=== PATIENT | male | born 1990 | race Caucasian/White ===

== ENCOUNTER 2017-07-16 11:23 | Emergency (ER) | payer SELFPAY ==
[2017-07-16 11:24] VITALS: BP 138/77; PULSE 87; RESP 18; TEMP 36; O2SAT 98; BMI 30.3
--- NOTE | 2017-07-16 11:40 | ED.DCSUM_ITS ---
- ER Visit Summary Date of Service: 07/16/17 Chief Complaint: [] Sore throat cough runny nose for a few days daughter with flu History of Present Illness: The patient is a 27 M [] since had no symptoms for a few days his daughter was diagnosed with the flu he is concerned he has strep throat he has not been exposed anyone with strep throat he is actually feeling better his sore throat cough are improved he has had strep throat in the past and is concerned he may need antibiotics he denies any past history has no physician Physical Examination: [] Vitals are within normal range is afebrile his no distress his throat is slightly red there is no exudate, the nose is slightly congested the neck is supple the lungs are clear the heart tones are normal the abdomen soft nontender upper lower extremity skin neurologic exam negative Test Results: [] Emergency Department Course and Treatment: [] I explained to him given his concerns we will swab him for strep and flu given the daughter has flu Strep throat swab came back positive, flu negative, he will be started on amoxicillin Naprosyn and follow-up with starts in clinic or physician of his choice Treatment Plan: [] Disposition: [] Impression: [] Acute strep pharyngitis exposed to flu This note was generated with [employer] dictation software. It may contain incorrect words, spelling, and punctuation that were not noted in review of the chart prior to signing ED Disposition - Plan for ED Patient: Chief Complaint: Sore Throat Referrals: Care Physician,No Primary [Primary Care Provider] -
[2017-07-16] MEDS: Naproxen 500 MG Tablet PO (12:20)
--- NOTE | 2017-07-16 12:29 | ED.DEP ---
ED Disposition - Plan for ED Patient: Chief Complaint: Sore Throat Instructions: ED Strep Pharyngitis Conf Prescriptions: Azithromycin [Zithromax Z-Marco A] 250 mg PO UD #1 box Naproxen [Naprosyn] 500 mg PO BID PRN #20 tab Referrals: Care Physician,No Primary [Primary Care Provider] - Sherri Wen [NON-STAFF] -
[2017-07-16 12:41] VITALS: BP 120/71; PULSE 78; RESP 16; O2SAT 98
== END 2017-07-16 12:42 | disposition home or self-care (01) ==
LOC: ED 12:36
PROVIDERS: Emergency Provider Emergency Medicine
DX: J02.0 Streptococcal pharyngitis (principal); Z20.828 Contact with and (suspected) exposure to other viral communicable diseases
CPT/HCPCS: 87804; 87880; 99282

== ENCOUNTER → 2018-08-02 12:46 | Outpatient (CLI) | payer MEDICAID, SELFPAY | PROVIDERS: Referring Provider Nurse Practitioner Women's Health; Visit Provider Nurse Practitioner Women's Health | DX: Z31.440 Encounter of male for testing for genetic disease carrier status for procreative management (principal) | CPT/HCPCS: 36415 ==

== ENCOUNTER 2024-04-12 17:16 | Emergency (ER) | payer MEDICAID, SELFPAY ==
[2024-04-12 17:17] VITALS: BP 126/72; PULSE 76; RESP 16; TEMP 36.8; O2SAT 98; BMI 34.7
--- NOTE | 2024-04-12 17:47 | EDS_ITS ---
HPI History of Present Illness Chief Complaint: Eye Problem Narrative Narrative: 34-year-old male who denies significant past medical history presents with foreign body in the cornea of his right eye. He states that 3 days ago he was grinding metal and wearing eye protection. While his eye pain and redness and blurry vision/tearing was improving, he still noticed a speck of metal in the cornea of his right eye. His girlfriend could see it as well. He states that yesterday he spent an hour flushing his right eye trying to get it out. [facility] Medical History (Updated 04/12/24 @ 18:14 by Bernard Zaldivar MD) Hepatitis C Home Medications ?Medication ?Instructions ?Recorded ?Last Taken ?Type naproxen 500 mg tablet 500 mg PO BID PRN #20 tabs 07/16/17 Unknown Rx sofosbuvir 400 mg-velpatasvir 100 1 tab PO DAILY 04/12/24 Unknown History mg tablet Allergy/AdvReac Type Severity Reaction Status Date / Time amoxicillin (Amoxicillin) Allergy Hives Verified 04/12/24 17:17 Social History Smoking Status: Current every day smoker ROS ROS ED ROS Narrative Review of systems positive for right eye redness and tearing with mild blurry vision. No loss of vision. Positive foreign body in cornea. Denies other symptoms. EXAM Physical Exam Narrative Exam Narrative: Afebrile. Vital signs noted. PERRL, EOMI. There is foreign body visualized at around 8:00 near the pupil of the right eye. There is conjunctival injection. No exudate. No rhinorrhea. Const Vital Signs: 04/12/24 17:17 Temperature 98.3 F Temperature Source Oral Pulse Rate 76 Respiratory Rate 16 Blood Pressure 126/72 H Blood Pressure Mean 90 Pulse Ox 98 Oxygen Delivery Method Room Air MDM MDM MDM Narrative Medical decision making narrative: Differential diagnosis includes foreign body versus corneal abrasion from flushing versus bacterial conjunctivitis. I have low suspicion for bacterial conjunctivitis. Given the visualized foreign body, as it has been for 3 days, I do not feel that it could be removed with a cotton tip swab. Tetracaine instilled in the right eye as well as fluorescein to look for larger abrasion from eye flushing. Patient was referred to ophthalmology. Patient demonstrated improvement and pain in his right eye after tetracaine which leads me to believe this is more of an epithelial type of injury. Fluorescein was instilled and while there was no distinct corneal abrasion noted or dye uptake, he may have denuded the corneal epithelial layer from flushing his right eye for an hour. He was administered erythromycin ophthalmic ointment. Once again I discussed with him the fact that the foreign body has been present for at least 3 days and that attempt at removal would cause more damage to the cornea and more pain. He will follow-up with ophthalmology for foreign body removal. Return instructions reviewed. Disposition is discharged home in stable condition. History & Record Review Discussion w/independent historian: Patient Discharge Plan Triage Chief Complaint: Eye Problem ED Provider: Bernard Zaldivar Dx/Rx/DC Orders Clinical Impression: Foreign body of cornea, right, Retained foreign body in eye Instructions: Foreign Object in the Cornea, ED Corneal Abrasion Prescriptions: No Action naproxen 500 MG tablet 500 mg PO BID PRN Qty: 20 0RF sofosbuvir-velpatasvir 400-100 mg tablet 1 tab PO DAILY Primary Care Provider: Care Physician,No Primary Referrals: Zachariah Saavedra MD [Med Staff - Active Staff] - 3-5 Days Lisa Parada MD [Med Staff - Active Staff] - 3-5 Days Care Physician,No Primary [Primary Care Provider] - Activity Restrictions/Additional Instructions: Call ophthalmology for an appointment for foreign body removal in your right cornea. Apply erythromycin ophthalmic ointment 1/4 to 1/2 inch ribbon to right eye 4 times a day, especially at night before sleeping. Return with increased redness of your right eye, loss of vision, new or worsening symptoms. Print Language: Pakistani Disposition Disposition: Home, Self Care
[2024-04-12] MEDS: Fluorescein 1 MG STRIP 1 STRIP OPHTHALMIC (17:51)
[2024-04-12] MEDS: Tetracaine 0.5% Ophthalmic Bottle 1 DRP OPHTHALMIC (17:52)
[2024-04-12 18:16] VITALS: BP 125/70; PULSE 70; RESP 16; TEMP 36.8; O2SAT 98
[2024-04-12] MEDS: Erythromycin Base 1 OPTH.TUBE 1 APPLIC RIGHT EYE ×2 (18:22)
== END 2024-04-12 18:24 | disposition home or self-care (01) ==
PROVIDERS: Emergency Provider Emergency Medicine; Visit Provider Emergency Medicine
DX: T15.01XA Foreign body in cornea, right eye, initial encounter (principal); W31.1XXA Contact with metalworking machines, initial encounter; F17.200 Nicotine dependence, unspecified, uncomplicated
CPT/HCPCS: 99283